=== PATIENT | female | born 2000 | race Two or more races ===

== ENCOUNTER 2022-02-25 00:05 | Emergency (ER) | payer OTHER, MEDICAID ==
[~2022-02-25] VITALS: Ht 170.2 cm; Wt 68.2 kg
[2022-02-25] MEDS ORDERED: ACCU-CHEK COMFORT CURVE STRIP VI ONE (00:45)
[2022-02-25 01:51] LABS: Eosinophils # (auto) 0.1 10 ^3/uL (0-0.8); Hemoglobin 8.3 g/dL (12.2-16.2); Monocytes # (auto) 0.9 10 ^3/uL (0-1.3); Neutrophils # (auto) 6.2 10 ^3/uL (1.6-8.6); Nucleated Red Blood Cells % 0.1 %; White Blood Cell 9.4 10^3/uL (4.4-10.8)
[2022-02-25 02:16] LABS: Potassium 4.1 mmol/L (3.5-5.1); Salicylate < 1.7 mg/dL (2.8-20.0)
[2022-02-25 02:20] LABS: Albumin 3.6 g/dL (3.4-5.0); BUN/Creatinine Ratio 21.6
[2022-02-25 02:22] LABS: Bilirubin, Total 0.4 mg/dL (0.2-1.0); Total Protein 7.4 g/dL (6.4-8.2)
[2022-02-25 02:29] LABS: Basophils # (auto) 0.1 10 ^3/uL (0-0.2); Basophils % (auto) 0.7 % (0.0-2.0); Eosinophils % (auto) 0.9 % (0.0-7.0); Hematocrit 25.9 % (36.0-46.0); Lymphocytes # (auto) 2.2 10 ^3/uL (0.4-5.4); Lymphocytes % (auto) 23.5 % (10.0-50.0); Mean Corpuscular Hgb Conc. 32.1 g/dL (32.0-36.0); Mean Corpuscular Volume 71.6 fL (80.0-100.0); Monocytes % (auto) 9.3 % (0.0-12.0); Neutrophils % (auto) 65.6 % (37.0-80.0); Red Blood Cells 3.62 10^6/uL (4.0-5.20); Red Cell Distribution Width 15.4 % (11.8-14.3)
[2022-02-25 02:30] LABS: Acetaminophen < 2.0 ug/mL (10-30)
[2022-02-25 06:18] LABS: Urine Bacteria FEW /hpf (None Seen); Urine Blood 1+ /uL (Negative); Urine Mucus FEW (None Seen); Urine WBC 298 /hpf (0 - 5); Urine WBC Clumps PRESENT /hpf (None Seen)
[2022-02-25 06:31] LABS: Alcohol, Urine < 3.0 mg/dL (0-10); Amphetamine Screen, Urine NEGATIVE (NEGATIVE); Barbiturate Scree,Urine NEGATIVE (NEGATIVE); Benzodiazephine Screen, Urine NEGATIVE (NEGATIVE); Cannabinoid Screen, Urine POSITIVE (NEGATIVE); Cocaine Screen, Urine NEGATIVE (NEGATIVE); Opiate Scree,Urine NEGATIVE (NEGATIVE); Phencyclidine Screen, Urine NEGATIVE (NEGATIVE)
[2022-02-25 07:00] VITALS: BP 100/63
[2022-02-25] MEDS ORDERED: CEPH-322 PO (08:22)
[2022-02-25] MEDS ORDERED: cefTRIAXone SOD 1,000 MG VL IM ONE (08:30)
== END 2022-02-25 10:59 | disposition home or self-care (01) ==
LOC: ER 00:05
DX: N39.0 Urinary tract infection, site not specified (principal); G89.29 Other chronic pain; M79.661 Pain in right lower leg
CPT/HCPCS: 36415; 80053; 80307; 80329; 81001; 82962; 83735; 84702; 85025; 93005; 96372; 99285; J0696